=== PATIENT | male | born 1960 | race Caucasian/White ===

== ENCOUNTER 2020-03-14 20:35 | Inpatient (IN) | payer MEDICAID ==
[~2020-03-14] VITALS: Ht 162.6 cm; Wt 74.6 kg
[2020-03-14] MEDS ORDERED: ACETAMINOPHEN 325MG TABLET PO STA (21:31)
[2020-03-14] MEDS ORDERED: SODIUM CHLORIDE 0.9% 1,000 ML IV ONE (21:33)
[2020-03-14] MEDS ORDERED: ONDANSETRON HCL 4MG/2ML INJ IV STA (21:33)
[2020-03-14 22:22] LABS: BASOPHILS % 0.1 % (0.0-2.0); HEMATOCRIT. 43.8 % (42.0-52.0); HEMOGLOBIN. 15.1 g/dL (14.0-18.0); MEAN CORPUSCULAR HEMOGLOBIN 31.8 pg (28.0-32.0); MEAN PLATELET VOLUME 8.3 fl (7.4-10.4); MONOCYTES % 5.9 % (2.0-8.0); PLATELET 202 x1000/uL (130-400); RED BLOOD CELL COUNT 4.76 mill/uL (4.7-6.1); RED CELL DISTRIBUTION WIDTH 12.7 % (11.6-14.6)
[2020-03-14 22:29] LABS: CHLORIDE 100 mEq/L (98-107)
[2020-03-14 22:35] LABS: D-DIMER 0.42 mg/L FEU (<0.50); INR 1.2; PROTHROMBIN TIME 12.2 sec (9.6-11.0)
[2020-03-14] MEDS ORDERED: DEXAMETHASONE 10 MG/ML VIAL IV ONE (23:45)
[2020-03-14] MEDS ORDERED: CEFTRIAXONE 1 G PREMIX 50 ML IV ONE (23:45)
[2020-03-14] MEDS ORDERED: AZITHROMYCIN 500 MG in DEXT 5% WATER 250 ML IV ONE (23:45)
[2020-03-15 01:37] LABS: CLARITY URINE CLEAR (CLEAR); COLOR URINE YELLOW (YELLOW); KETONES URINE 1+ (NEGATIVE); LEUKOCYTE ESTERASE URINE NEGATIVE (NEGATIVE); NITRITE URINE NEGATIVE (NEGATIVE); OCCULT BLOOD URINE NEGATIVE (NEGATIVE); PROTEIN URINE 2+ (NEGATIVE); SPECIFIC GRAVITY URINE 1.028 (1.005-1.030)
[2020-03-15 03:15] VITALS: BP 125/76
[2020-03-15 04:00] VITALS: BP 125/76
[2020-03-15] MEDS ORDERED: GLIP5TAB12 MT (04:23)
[2020-03-15] MEDS ORDERED: METF-414 MT (04:23)
[2020-03-15] MEDS ORDERED: ATOR10TA69 MT (04:23)
[2020-03-15 08:00] VITALS: BP 133/88
[2020-03-15] MEDS ORDERED: CEFTRIAXONE 1 G PREMIX 50 ML IV SCH (08:15)
[2020-03-15] MEDS ORDERED: ALBUTEROL 6.7GM HFA INHALER ORI PRN (08:15)
[2020-03-15] MEDS ORDERED: DEXTROSE 50% WATER 50ML SYRINGE IV PRN (08:15)
[2020-03-15 08:46] LABS: CHLORIDE 105 mEq/L (98-107)
[2020-03-15] MEDS: INSULIN LISPRO 100 UNITS/ML SUBCUT SCH ×4 (08:49→21:27)
[2020-03-15] MEDS: DEXAMETHASONE 4MG TABLET PO SCH (08:49)
[2020-03-15 08:51] LABS: LDL CHOLESTEROL 129 mg/dL (5-100)
[2020-03-15 08:53] LABS: HDL CHOLESTEROL 21 mg/dL (40-59)
[2020-03-15] MEDS ORDERED: ENOXAPARIN 40MG/0.4ML SYR SUBCUT SCH (09:00)
[2020-03-15] MEDS ORDERED: INSULIN GLARGINE UD 100 UNITS/ML SYR SUBCUT SCH (10:00)
[2020-03-15] MEDS: BLOOD SUGAR DIAGNOSTIC STRIP TEST SCH ×3 (11:39→20:59)
[2020-03-15 12:00] VITALS: BP 104/61
[2020-03-15 16:00] VITALS: BP 117/66
[2020-03-15 20:00] VITALS: BP 134/80
[2020-03-15] MEDS: CEFTRIAXONE 1,000 MG in DEXTROSE 5% WATER 50 ML IV SCH (20:59)
[2020-03-15] MEDS: ATORVASTATIN CALCIUM 20MG TABLET PO SCH (20:59)
[2020-03-15] MEDS: AZITHROMYCIN 500 MG in DEXT 5% WATER 250 ML IV SCH (21:56)
[2020-03-15] MEDS: INSULIN GLARGINE UD 100 UNITS/ML SYR SUBCUT SCH (21:57)
[2020-03-16] VITALS: BP 122/64
[2020-03-16 04:00] VITALS: BP 108/63
[2020-03-16] MEDS: BLOOD SUGAR DIAGNOSTIC STRIP TEST SCH ×4 (07:40→20:13)
[2020-03-16 08:00] VITALS: BP 111/69
[2020-03-16] MEDS: INSULIN LISPRO 100 UNITS/ML SUBCUT SCH ×4 (08:51→20:18)
[2020-03-16] MEDS: DEXAMETHASONE 4MG TABLET PO SCH (08:51)
[2020-03-16] MEDS: INSULIN GLARGINE UD 100 UNITS/ML SYR SUBCUT SCH ×2 (10:54→21:59)
[2020-03-16 12:00] VITALS: BP 111/70
[2020-03-16] MEDS: ALBUTEROL 6.7GM HFA INHALER ORI SCH ×2 (12:30→18:00)
[2020-03-16] MEDS: GUAIFENESIN 600MG ER TABLET PO SCH ×2 (13:34→20:17)
[2020-03-16] MEDS: ENOXAPARIN 80MG/0.8ML SYR SUBCUT SCH (13:35)
[2020-03-16 16:00] VITALS: BP 107/74
[2020-03-16 20:00] VITALS: BP 130/80
[2020-03-16] MEDS: CEFTRIAXONE 1,000 MG in DEXTROSE 5% WATER 50 ML IV SCH (20:17)
[2020-03-16] MEDS: AZITHROMYCIN 500 MG in DEXT 5% WATER 250 ML IV SCH (20:17)
[2020-03-16] MEDS: ATORVASTATIN CALCIUM 20MG TABLET PO SCH (20:17)
[2020-03-17] VITALS: BP 132/70
[2020-03-17] MEDS: ENOXAPARIN 80MG/0.8ML SYR SUBCUT SCH ×2 (00:45→11:26)
[2020-03-17 04:00] VITALS: BP 108/67
[2020-03-17] MEDS: ALBUTEROL 6.7GM HFA INHALER ORI SCH ×3 (05:05→11:23)
[2020-03-17] MEDS: BLOOD SUGAR DIAGNOSTIC STRIP TEST SCH (05:17)
[2020-03-17] MEDS: INSULIN LISPRO 100 UNITS/ML SUBCUT SCH (08:23)
[2020-03-17] MEDS: GUAIFENESIN 600MG ER TABLET PO SCH (08:23)
[2020-03-17 10:37] VITALS: BP 119/63
[2020-03-17] MEDS: INSULIN GLARGINE UD 100 UNITS/ML SYR SUBCUT SCH (11:23)
== END 2020-03-17 12:40 | disposition home or self-care (01) | DRG 720 ==
LOC: ER 20:35 → 7WST 23:38 → ENRESERV 03-15 01:49
PROVIDERS: ADMIT Internal Medicine; ATTEND Internal Medicine
DX: A41.89 Other specified sepsis (principal); U07.1 COVID-19; J96.01 Acute respiratory failure with hypoxia; I10 Essential (primary) hypertension; E78.5 Hyperlipidemia, unspecified; E44.0 Moderate protein-calorie malnutrition; E11.9 Type 2 diabetes mellitus without complications; J12.89 Other viral pneumonia; Z78.9 Other specified health status; Z68.28 Body mass index [BMI] 28.0-28.9, adult; Z79.899 Other long term (current) drug therapy
CPT/HCPCS: 36415; 71045; 80048; 80053; 80061; 81003; 82962; 83036; 83605; 83880; 84145; 84484; 85025; 85379; 85384; 87635; 93005; 99285; J0456; J0696; J1100; J1650; J1815; J2405; J7030; J7060; J8540